=== PATIENT | female | born 1960 | race Caucasian/White ===

== ENCOUNTER 2022-01-17 15:20 | Emergency (ER) | payer OTHER ==
--- NOTE | 2022-01-17 16:36 | RAD REPORT ---
EXAM DESCRIPTION: CT - CTHCSPWOC - 01/17/2022 3:43 pm CLINICAL HISTORY: fall, head injury COMPARISON: No comparisons TECHNIQUE: Axial 5 mm thick images of the head were obtained. Axial 2 mm thick images of the cervic al spine were obtained with sagittal and coronal reconstruction images generated and reviewed. All CT scans are performed using dose optimization technique as appropriate and may include automated exposure control or mA/KV adjustment according to patient size. FINDINGS: No intracranial hemorrhage, mass, edema or acute intracranial finding. No suspicion for ac marely infarction. No extra-axial fluid collections. Mastoid air cells and paranasal sinuses are clear. No globe or orbit abnormality seen. Cervical body height and alignment are normal. C4-5, C5-6 and C6-7 disc space narrowing present. Mild bony foraminal encroachment seen at C4-5. Moderate severity foraminal encroachment seen at C5-6. No fracture or acute bony abnormality. Central canal detail is inherently limited. No paraspinal mass or hematoma. IMPRESSION: Negative CT head examination for acute or significant finding. Negative CT cervical spine examination for acute or significant finding. Cervical spine degenerative change present as detailed.
--- NOTE | 2022-01-17 17:11 | RAD REPORT ---
EXAM DESCRIPTION: Shoulder Right 2 View - 01/17/2022 3:59 pm CLINICAL HISTORY: fall COMPARISON: No comparisons TECHNIQUE: Internal and external rotation views of the right shoulder were obtained. FINDINGS: Right humeral head demonstrates anterior dislocation with medial inferior displacement of the humeral head. There is a large greater tuberosity free fracture fragment displaced approximately 15 mm. Fracture of the bony glenoid is not seen. AC joint is intact. There are degenerative changes w ith superior and inferior clavicle head spurring. No pathologic changes identified. IMPRESSION: Anterior dislocation of the humeral head with large displaced greater tuberosity fractur e fragment.
--- NOTE | 2022-01-17 17:13 | RAD REPORT ---
EXAM DESCRIPTION: RAD - Humerus Right - 01/17/2022 3:59 pm CLINICAL HISTORY: fall COMPARISON: No comparisons FINDINGS: Anterior dislocation of the humeral head present displaced medially and inferiorly. There is a large greater tuberosity free fracture fragment displaced 15 mm. Remainder the humerus is unrema rkable. No elbow joint abnormality seen. AC joint is intact. IMPRESSION: Anterior dislocation of the right humeral head with displaced greater tuberosity free fr acture fragment.
[2022-01-17] MEDS ORDERED: MORPHINE 4 MG/ML SYR ONE (17:55)
[2022-01-17] MEDS ORDERED: ONDANSETRON 4 MG (ODT) TAB ONE (17:55)
[2022-01-17] MEDS ORDERED: DIAZEPAM 10 MG/2 ML INJ SYRINGE ONE (19:02)
[2022-01-17] MEDS ORDERED: FENTANYL CITR 100 MCG/2 ML ONE ×3 (19:02→20:33)
[2022-01-17] MEDS ORDERED: propofoL 200 MG/20 ML VIAL IV ONE (20:27)
--- NOTE | 2022-01-17 21:09 | ER ---
Nurse's Notes [facility] Name: Ijeoma Ibrahim Age: 61 yrs Sex: Female : 1960 Arrival Date: 01/17/2022 Time: 15:23 Bed 15 Private MD: Diagnosis: Closed Humeral Head Fracture;Anterior Shoulder Dislocation Presentation: 01/17 15:30 Chief complaint: Patient states: she fell at approx 1430. Patient states she fell on a ap3 chair mat, patient doesn't remember the fall. The fall was unwitnessed. Patient denies LOC. Patient reports hitting her head, behind her right ear. Patient also reports right arm pain, and having an inability to move her right arm. Care prior to arrival: None. Mechanism of Injury: Fall from standing position. Trauma event details: Injury occurred in the [facility], Injury occurred: at home. Injury occurred: January 17, 2022 Injury occurred at: 14:30. Activity prior to arrival: None. 15:30 Acuity: AUGIE 3 ap3 15:30 Method Of Arrival: Wheelchair ap3 15:34 Coronavirus screen: At this time, the client does not indicate any symptoms associated ap3 with coronavirus-19. Ebola Screen: No symptoms or risks identified at this time. Initial Sepsis Screen: Does the patient meet any 2 criteria? No. Patient's initial sepsis screen is negative. Does the patient have a suspected source of infection? No. Patient's initial sepsis screen is negative. Risk Assessment: Do you want to hurt yourself or someone else? Patient reports no desire to harm self or others. Onset of symptoms was January 17, 2022. Triage Assessment: 15:35 General: Appears uncomfortable, Behavior is calm, cooperative. Pain: Complains of pain ap3 in head, right arm. Neuro: Level of Consciousness is awake, alert, obeys commands, Oriented to person, place, time, situation, Speech is normal. Cardiovascular: Patient's skin is warm and dry. Respiratory: Airway is patent Respiratory effort is even, unlabored. GI: Reports nausea. Trauma Activation: Not Applicable Physician: ED Physician; Name: ; Notified At: ; Arrived At: Physician: General Surgeon; Name: ; Notified At: ; Arrived At: Physician: Radiology; Name: ; Notified At: ; Arrived At: Physician: Respiratory; Name: ; Notified At: ; Arrived At: Physician: Lab; Name: ; Notified At: ; Arrived At: Historical: - Allergies: 15:34 Sulfa (Sulfonamide Antibiotics); ap3 - PMHx: 15:34 Hypertensive disorder; Diabetes mellitus; ap3 15:34 Sleep apnea; ap3 - Immunization history:: Client reports receiving the 2nd dose of the Covid vaccine. - Social history:: Smoking status: Patient denies any tobacco usage or history of. Screenin:30 Abuse screen: Denies threats or abuse. Nutritional screening: No deficits noted. jb4 Tuberculosis screening: No symptoms or risk factors identified. Fall Risk Fall in past 12 months (25 points). Assessment: 17:26 General: Appears in no apparent distress. uncomfortable, Behavior is calm, cooperative, jb4 appropriate for age. Pain: Complains of pain in right arm Pain does not radiate. Pain currently is 8 out of 10 on a pain scale. Neuro: Level of Consciousness is awake, alert, obeys commands, Oriented to person, place, time, situation. Cardiovascular: Patient's skin is warm and dry. Respiratory: Airway is patent Respiratory effort is even, unlabored, Respiratory pattern is regular, symmetrical. Derm: Skin is intact, Skin is pink, warm \T\ dry. Musculoskeletal: Circulation, motion, and sensation intact. Range of motion: limited in right shoulder and right elbow. 18:31 Reassessment: Patient appears in no apparent distress at this time. Patient and/or jb4 family updated on plan of care and expected duration. Pain level reassessed. Patient is alert, oriented x 3, equal unlabored respirations, skin warm/dry/pink. 19:30 Reassessment: Patient appears in no apparent distress at this time. Patient and/or jb4 family updated on plan of care and expected duration. Pain level reassessed. Patient is alert, oriented x 3, equal unlabored respirations, skin warm/dry/pink. 20:30 Reassessment: Patient appears in no apparent distress at this time. Patient and/or jb4 family updated on plan of care and expected duration. Pain level reassessed. Patient is alert, oriented x 3, equal unlabored respirations, skin warm/dry/pink. 21:26 Reassessment: Patient appears in no apparent distress at this time. Patient and/or jb4 family updated on plan of care and expected duration. Pain level reassessed. Patient is alert, oriented x 3, equal unlabored respirations, skin warm/dry/pink. Vital Signs: 15:34 BP 167 / 87; Pulse 70; Resp 17; Temp 98.4; Pulse Ox 94% ; Weight 87.09 kg; Height 5 ft. ap3 (152.40 cm); 17:27 BP 166 / 58; Pulse 66; Resp 16; Pulse Ox 100% on R/A; jb4 18:45 BP 179 / 86; Pulse 66; Resp 22; Pulse Ox 97% on R/A; jb4 20:15 BP 167 / 78; Pulse 71; Resp 16; Pulse Ox 95% on R/A; jb4 21:26 BP 154 / 80; Pulse 86; Resp 18; Pulse Ox 96% on R/A; jb4 15:34 Body Mass Index 37.50 (87.09 kg, 152.40 cm) ap3 ED Course: 15:23 Patient arrived in ED. mr 15:24 Jarrett Clement PA is PHCP. jmm 15:24 Thai Handy MD is Attending Physician. jmm 15:33 Triage completed. ap3 15:36 Arm band placed on left wrist. ap3 15:44 CT Head C Spine In Process Unspecified. EDMS 16:00 Shoulder Right (2 View) XRAY In Process Unspecified. EDMS 16:01 Humerus Right XRAY In Process Unspecified. EDMS 17:26 Gary Donnelly, RN is Primary Nurse. jb4 17:30 Patient has correct armband on for positive identification. Bed in low position. Call jb4 light in reach. Side rails up X 1. Client placed on continuous cardiac and pulse oximetry monitoring. NIBP monitoring applied. 21:06 Shoulder 1 View In Process Unspecified. EDMS 21:07 Jj Garcia MD is Referral Physician. jmm 21:27 No provider procedures requiring assistance completed. IV discontinued, intact, jb4 bleeding controlled, No redness/swelling at site. Pressure dressing applied. Administered Medications: 17:54 Drug: morphine 4 mg Route: IM; Site: left deltoid; jb4 20:12 Follow up: Response: No adverse reaction; Marked relief of symptoms jb4 17:54 Drug: Ondansetron 4 mg Route: PO; jb4 20:12 Follow up: Response: No adverse reaction; Marked relief of symptoms jb4 19:14 Drug: fentaNYL (PF) 50 mcg Route: IVP; Site: left antecubital; jb4 20:12 Follow up: Response: No adverse reaction; Marked relief of symptoms jb4 19:14 Drug: Valium (diazepam) 5 mg Route: IVP; Site: left antecubital; jb4 20:12 Follow up: Response: No adverse reaction; Marked relief of symptoms jb4 20:00 Drug: fentaNYL (PF) 75 mcg Route: IVP; Site: left antecubital; jb4 20:56 Follow up: Response: No adverse reaction; Marked relief of symptoms jb4 Medication: 21:26 VIS not applicable for this client. jb4 Outcome: 21:08 Discharge ordered by . edvin 21:27 Discharged to home via wheelchair, with family. jb4 21:27 Condition: stable 21:27 Discharge instructions given to patient, Instructed on discharge instructions, follow up and referral plans. medication usage, Demonstrated understanding of instructions, follow-up care, medications, Prescriptions given X 1. 21:27 Patient left the ED. jb4 Signatures: Dispatcher [employer] EDMS Jarrett Clement PA PA jmm Rivera, Mary mr Bryson, James RN RN jb4 Shazia Mitchell RN RN ap3 Corrections: (The following items were deleted from the chart) 19:20 19:20 Valium (diazepam) 5 mg IVP in left antecubital jb4 jb4
--- NOTE | 2022-01-17 21:09 | EDPHYS ---
Physician Documentation [facility] Name: Ijeoma Ibrahim Age: 61 yrs Sex: Female : 1960 Arrival Date: 01/17/2022 Time: 15:23 Bed 15 Private MD: ED Physician Thai Handy HPI: 01/17 15:24 This 61 yrs old Female presents to ER via Wheelchair with complaints of Fall Injury, jmm Head Injury-Adult, Arm Injury. 15:24 Details of fall: The patient fell from an upright position. Onset: The symptoms/episode jmm began/occurred acutely. Associated injuries: The patient sustained injury to the head. The patient has not experienced similar symptoms in the past. This is a 61 year old female with a history of htn, dm, that presents to the ED with complaints to the right shoulder pain following a fall which occurred after tripping on a mat. Patient states hitting her head. Denies loc but states having some nausea. . Historical: - Allergies: 15:34 Sulfa (Sulfonamide Antibiotics); ap3 - PMHx: 15:34 Hypertensive disorder; Diabetes mellitus; ap3 15:34 Sleep apnea; ap3 - Immunization history:: Client reports receiving the 2nd dose of the Covid vaccine. - Social history:: Smoking status: Patient denies any tobacco usage or history of. ROS: 15:24 Constitutional: Negative for fever, chills, and weight loss, Cardiovascular: Negative jmm for chest pain, palpitations, and edema, Respiratory: Negative for shortness of breath, cough, wheezing, and pleuritic chest pain. 15:24 Abdomen/GI: Positive for nausea. 15:24 MS/extremity: Positive for injury or acute deformity, pain. 15:24 Neuro: Positive for headache. 15:24 All other systems are negative. Exam: 15:24 Constitutional: This is a well developed, well nourished patient who is awake, alert, jmm and in no acute distress. Head/Face: atraumatic. Eyes: EOMI, no conjunctival erythema appreciated ENT: Moist Mucus Membranes Neck: Trachea midline, Supple Chest/axilla: Normal chest wall appearance and motion. Cardiovascular: Regular rate and rhythm. No edema appreciated Respiratory: Normal respirations, no respiratory distress appreciated Abdomen/GI: Non distended Back: Normal ROM Skin: General appearance color normal 15:24 Musculoskeletal/extremity: right anterior shoulder pain on palpation, full biological technical officer strength, NVI, held in adduction and internal rotation. 15:24 Skin: Appearance: Color: normal in color. 15:24 Neuro: Orientation: is normal, Mentation: is normal, Memory: is normal. 15:24 Psych: Behavior/mood is pleasant, cooperative. Vital Signs: 15:34 BP 167 / 87; Pulse 70; Resp 17; Temp 98.4; Pulse Ox 94% ; Weight 87.09 kg; Height 5 ft. ap3 (152.40 cm); 17:27 BP 166 / 58; Pulse 66; Resp 16; Pulse Ox 100% on R/A; jb4 18:45 BP 179 / 86; Pulse 66; Resp 22; Pulse Ox 97% on R/A; jb4 20:15 BP 167 / 78; Pulse 71; Resp 16; Pulse Ox 95% on R/A; jb4 21:26 BP 154 / 80; Pulse 86; Resp 18; Pulse Ox 96% on R/A; jb4 15:34 Body Mass Index 37.50 (87.09 kg, 152.40 cm) ap3 Procedures: 21:06 Reduction: of the right shoulder, using manipulation, Immobilized with sling, Patient edvin tolerated well. Post reduction film - reveals improved alignment. MDM: 15:24 Patient medically screened. [facility] 21:06 Data reviewed: vital signs, nurses notes. Counseling: I had a detailed discussion with edvin the patient and/or guardian regarding: the historical points, exam findings, and any diagnostic results supporting the discharge/admit diagnosis, radiology results, the need for outpatient follow up, to return to the emergency department if symptoms worsen or persist or if there are any questions or concerns that arise at home. 01/17 15:25 Order name: CT Head C Spine; Complete Time: 16:40 [facility] 01/17 15:25 Order name: Shoulder Right (2 View) XRAY; Complete Time: 17:14 [facility] 01/17 15:25 Order name: Humerus Right XRAY; Complete Time: 17:14 [facility] 01/17 20:19 Order name: Shoulder 1 View [facility] 01/17 17:18 Order name: Saline Lock; Complete Time: 18:24 [facility] Administered Medications: 17:54 Drug: morphine 4 mg Route: IM; Site: left deltoid; jb4 20:12 Follow up: Response: No adverse reaction; Marked relief of symptoms jb4 17:54 Drug: Ondansetron 4 mg Route: PO; jb4 20:12 Follow up: Response: No adverse reaction; Marked relief of symptoms jb4 19:14 Drug: fentaNYL (PF) 50 mcg Route: IVP; Site: left antecubital; jb4 20:12 Follow up: Response: No adverse reaction; Marked relief of symptoms jb4 19:14 Drug: Valium (diazepam) 5 mg Route: IVP; Site: left antecubital; jb4 20:12 Follow up: Response: No adverse reaction; Marked relief of symptoms jb4 20:00 Drug: fentaNYL (PF) 75 mcg Route: IVP; Site: left antecubital; jb4 20:56 Follow up: Response: No adverse reaction; Marked relief of symptoms jb4 Disposition Summary: 01/17/22 21:08 Discharge Ordered Location: Home [facility] Condition: Stable [facility] Diagnosis - Closed Humeral Head Fracture [facility] - Anterior Shoulder Dislocation [facility] Followup: [facility] - With: Jj Garcia MD - When: 2 - 3 days - Reason: Recheck today's complaints, Continuance of care, Re-evaluation by your physician Discharge Instructions: - Discharge Summary Sheet [facility] - Shoulder Dislocation [facility] - Humerus Fracture Treated With Immobilization [facility] Forms: - Medication Reconciliation Form [facility] - Thank You Letter [facility] - Antibiotic Education [facility] - Prescription Opioid Use [facility] Prescriptions: - Tylenol-Codeine #3 300 mg-30 mg Oral - take 1 tablet by ORAL route every 4-6 hours As needed; 30 tablet; Refills: 0, [facility] Product Selection Permitted Signatures: Dispatcher [employer] EDMS Jarrett Clement PA PA Gary Mcdaniel, RN RN jb4 Shazia Mitchell RN RN ap3 Corrections: (The following items were deleted from the chart) 20:19 19:20 Shoulder Right 2 View+[email or web address] ordered. EDMS EDMS
--- NOTE | 2022-01-17 21:10 | RAD REPORT ---
EXAM DESCRIPTION: RAD - Shoulder 1 View - 01/17/2022 9:05 pm FINDINGS: Single view of the shoulder labeled postreduction obtained. The anterior dislocation has been reduced. The greater tuberosity fracture now closely approximates t he main body the humerus.
[2022-01-17 21:52] VITALS: TEMP 98.4
[2022-01-17 21:59] VITALS: BP 154/80; O2SAT 96
== END 2022-01-17 21:27 | disposition home or self-care (01) ==
LOC: ER 15:20
PROC: 0PSFXZZ Reposition Right Humeral Shaft, External Approach (ICD-10-PCS; principal; 2022-01-17)
DX: S42.301A Unspecified fracture of shaft of humerus, right arm, initial encounter for closed fracture (principal); S43.084A Other dislocation of right shoulder joint, initial encounter; E11.9 Type 2 diabetes mellitus without complications; I10 Essential (primary) hypertension; Z88.2 Allergy status to sulfonamides
CPT/HCPCS: 70450; 72125; 73020; 73060; 73030; 96375; 96372; 96374; 99283; 24505; Q0162; J3360; J3010 ×2; J2704